=== PATIENT | female | born 1955 | race Caucasian/White ===

== ENCOUNTER → 2016-08-22 | Outpatient (CLI) | payer OTHER | LOC: FIMAGING 08:47 | PROVIDERS: ATTEND Physician Assistant | DX: K21.9 Gastro-esophageal reflux disease without esophagitis (principal) ==

== ENCOUNTER → 2017-05-13 | Outpatient (CLI) | payer OTHER | LOC: BMCIMAGING 14:38 | PROVIDERS: ATTEND Obstetrics & Gynecology | DX: Z13.820 Encounter for screening for osteoporosis (principal); M85.80 Other specified disorders of bone density and structure, unspecified site | CPT/HCPCS: G0202 ==

== ENCOUNTER → 2017-05-31 | Outpatient (CLI) | payer OTHER | LOC: BMCIMAGING 09:42 | PROVIDERS: ATTEND Obstetrics & Gynecology | DX: R92.8 Other abnormal and inconclusive findings on diagnostic imaging of breast (principal) | CPT/HCPCS: G0206 ==

== ENCOUNTER → 2017-09-02 | Outpatient (CLI) | payer OTHER | LOC: BMCIMAGING 07:47 | PROVIDERS: ATTEND Physician Assistant | DX: I70.0 Atherosclerosis of aorta (principal); I65.22 Occlusion and stenosis of left carotid artery ==

== ENCOUNTER → 2018-06-11 | Outpatient (CLI) | payer OTHER | LOC: FIMAGING 14:01 | PROVIDERS: ATTEND Obstetrics & Gynecology | DX: Z12.31 Encounter for screening mammogram for malignant neoplasm of breast (principal); Z80.3 Family history of malignant neoplasm of breast ==